=== PATIENT | male | born 1985 | race American Indian/Alaskan Native ===

== ENCOUNTER 2020-04-03 14:08 | Emergency (ER) | payer SELFPAY ==
[2020-04-03 14:48] VITALS: BP 135/73
--- NOTE | 2020-04-03 15:44 | Emergency Department Report ---
ED Abdominal Pain HPI - General Chief Complaint: Urogenital-Male Stated Complaint: GROIN PAINS Time Seen by Provider: 04/03/20 15:39 Source: patient Mode of arrival: Ambulatory Limitations: No Limitations - History of Present Illness Initial Comments: 35-year-old F [place] male with a relatively normal past medical history presents emergency department complaining of pain and swelling to his right inguinal area which started only after he tried to lift up a heavy box. States he lifted heavy box and felt immediate sharp burning pain to the right inguinal area with a knot that he been unable to get rid of since the onset of symptoms since then has been progressively worsening. Reports no diarrhea, no constipation, no fever, chills, sweats. Location: RLQ Radiation: none Migration to: no migration Severity: mild, moderate Quality: aching, sharp Consistency: constant Improves With: nothing Worsens With: nothing Associated Symptoms: denies: vomiting, diarrhea, constipation, hematuria, anorexia - Related Data Previous Rx's Medication Instructions Recorded Last Taken Type Ketorolac [Toradol] 10 mg PO Q6H PRN #14 tablet 04/03/20 Unknown Rx Allergies Allergy/AdvReac Type Severity Reaction Status Date / Time No Known Allergies Allergy Unverified 04/03/20 14:45 ED Review of Systems ROS: Stated complaint: GROIN PAINS Other details as noted in HPI Comment: All other systems reviewed and negative ED Past Medical Hx - Past Medical History Previous Medical History?: No - Surgical History Past Surgical History?: No - Social History Smoking Status: Current Every Day Smoker - Medications Home Medications: Home Medications Medication Instructions Recorded Confirmed Last Taken Type Ketorolac [Toradol] 10 mg PO Q6H PRN #14 tablet 04/03/20 Unknown Rx ED Physical Exam - General Limitations: No Limitations General appearance: alert, in no apparent distress - Head Head exam: Present: atraumatic, normocephalic - Eye Eye exam: Present: normal appearance, PERRL, EOMI Pupils: Present: normal accommodation - ENT ENT exam: Present: normal exam, mucous membranes moist, TM's normal bilaterally - Neck Neck exam: Present: normal inspection, full ROM. Absent: tenderness - Respiratory Respiratory exam: Present: normal lung sounds bilaterally. Absent: respiratory distress, rales, rhonchi, accessory muscle use, decreased breath sounds - Cardiovascular Cardiovascular Exam: Present: regular rate, normal rhythm. Absent: systolic murmur, diastolic murmur, rubs, gallop - GI/Abdominal GI/Abdominal exam: Present: soft, tenderness, normal bowel sounds, hernia (Right inguinal area tenderness with palpation unable to reduce in the area the lymph node ). Absent: hypoactive bowel sounds, organomegaly, mass, pulsatile mass - Rectal Rectal exam: Present: deferred - Extremities Exam Extremities exam: Present: normal inspection - Back Exam Back exam: Present: normal inspection - Neurological Exam Neurological exam: Present: alert, oriented X3 - Psychiatric Psychiatric exam: Present: normal affect, normal mood - Skin Skin exam: Present: warm, dry, intact, normal color. Absent: rash ED Course Vital Signs 04/03/20 14:44 Temperature 98.3 F Pulse Rate 74 Respiratory 16 Rate Blood Pressure 135/73 O2 Sat by Pulse 98 Oximetry ED Medical Decision Making - Lab Data Result diagrams: 04/03/20 16:09 04/03/20 16:09 - Radiology Data Radiology results: report reviewed Referring Physician:BEVERLY HUMPHREYSPatient Name:CAROL ANN SAGASTUMEPatient ID:[id number] of :[id number]:MaleAccession:[id number] Date:[id number] Status:Finalized Findings [facility] [address] [place] [address] Cat Scan Report Signed Patient: CAROL ANN SAGASTUME MR#: [id number] [birth year] : 1985 Acct:[id number] Age/Sex: 35 / M ADM Date: 04/03/20 Loc: ED Attending Dr: Ordering Physician: SLAVA GARCIA Date of Service: 04/03/20 Procedure(s): CT abdomen pelvis w con Accession Number(s): [id number] cc: SLAVA GARCIA CT ABDOMEN AND PELVIS WITH CONTRAST INDICATION / CLINICAL INFORMATION: Lower ABD Pain. TECHNIQUE: Axial CT images were obtained through the abdomen and pelvis after 100 cc Omni [address] scans at this location are performed using CT dose reduction for ALARA by means of automated exposure control. COMPARISON: None available. FINDINGS: LOWER CHEST: No significant abnormality. HEPATOBILIARY: Mildly enlarged liver. No focal hepatic lesion. No significant biliary abnormality. PANCREAS: No significant abnormality. SPLEEN: No significant abnormality. ADRENALS: No significant abnormality. GENITOURINARY: 1 mm right-sided nonobstructing nephrolith and 4 mm left-sided nonobstructing nephrolith. Visualized ureters and bladder demonstrate no significant abnormality. GASTROINTESTINAL/MESENTERY: No bowel obstruction or inflammation. Appendix d emonstrates no significant abnormality. No free air or significant free fluid. RETROPERITONEUM: No significant adenopathy. REPRODUCTIVE ORGANS: No significant abnormality. VASCULAR: No significant abnormality. Circumaortic left renal vein. SKELETAL SYSTEM: No significant abnormality. ADDITIONAL FINDINGS: None. IMPRESSION: 1. No acute abdominopelvic abnormality. 2. Mild hepatomegaly. 3. Few, punctate, nonobstructing nephroliths. Signer Name: Nahun Molina MD Signed: 04/03/2020 5:24 PM Workstation Name: [id number] Transcribed By: Dictated By: NAHUN MOLINA III Electronically Authenticated By: NAHUN MOLINA III Signed Date/Time: 04/03/201723 DD/ 16 TD/TT: - Medical Decision Making This patient presents with abdominal pain of unclear etiology. A CT scan was performed to evaluate for potential causes of the abdominal pain, however, neither the clinical exam nor the CT has identified an emergent etiology for the abdominal pain. Specifically, given the benign exam, the laboratory studies, and unremarkable CT, I have a very low suspicion for appendicitis, ischemic bowel, bowel perforation, or any other life threatening disease. I have discussed with the patient the level of uncertainty with undifferentiated abdominal pain and clearly explained the need to follow-up as noted on the discharge instructions, or return to the Emergency Department immediately if the pain worsens, develops fever, persistent and uncontrollable vomiting, or for any new symptoms or concerns. Critical care attestation.: If time is entered above; I have spent that time in minutes in the direct care of this critically ill patient, excluding procedure time. ED Disposition Clinical Impression: Abdominal pain, Inguinal hernia Disposition: -01 TO HOME OR SELFCARE Is pt being admited?: No Does the pt Need Aspirin: No Condition: Stable Instructions: Abdominal Pain (ED), Acute Abdominal Pain (ED), Inguinal Hernia (ED) Additional Instructions: Please be sure to follow-up with a general surgeon for definitive treatment Prescriptions: Ketorolac [Toradol] 10 mg PO Q6H PRN #14 tablet PRN Reason: Pain Referrals: PRIMARY CARE, [Primary Care Provider] - 3-5 Days [facility] [Provider Group] - 3-5 Days RAY HILLMAN DO [Staff Physician] - 3-5 Days
[2020-04-03 16:22] LABS: Basophils # (Auto) 0.1 K/mm3 (0.0-0.1); Basophils % (Auto) 0.8 % (0.0-1.8); Eosinophils # (Auto) 0.2 K/mm3 (0.0-0.4); Eosinophils % (Auto) 2.7 % (0.0-4.3); Hematocrit 40.6 % (35.5-45.6); Hemoglobin 13.5 gm/dl (11.8-15.2); Lymphocytes # (Auto) 1.7 K/mm3 (1.2-5.4); Lymphocytes % (Auto) 21.8 % (13.4-35.0); Mean Corpuscular HGB Conc 33 % (32-34); Mean Corpuscular Volume 86 fl (84-94); Monocytes # (Auto) 0.6 K/mm3 (0.0-0.8); Monocytes % (Auto) 7.8 % (0.0-7.3); Platelet Count 262 K/mm3 (140-440); Red Blood Count 4.75 M/mm3 (3.65-5.03); Red Cell Distribution Width 13.6 % (13.2-15.2)
[2020-04-03 16:36] LABS: Blood Urea Nitrogen 19 mg/dL (9-20); Calcium 9.2 mg/dL (8.4-10.2); Hemolysis Index 11
[2020-04-03] MEDS ORDERED: MORPHINE 2 MG/1 ML INJ ONE (16:44)
[2020-04-03 16:46] LABS: BUN/Creatinine Ratio 32
--- NOTE | 2020-04-03 17:29 | Cat Scan Report ---
CT ABDOMEN AND PELVIS WITH CONTRAST INDICATION / CLINICAL INFORMATION: Lower ABD Pain. TECHNIQUE: Axial CT images were obtained through the abdomen and pelvis after 100 cc Omni [address] scans at this location are performed using CT dose reduction for ALARA by means of automated expos ure control. COMPARISON: None available. FINDINGS: LOWER CHEST: No significant abnormality. HEPATOBILIARY: Mildly enlarged liver. No focal hepatic lesion. No significant biliary abnormality. PANCREAS: No significant abnormality. SPLEEN: No significant abnormality. ADRENALS: No significant abnormality. GENITOURINARY: 1 mm right-sided nonobstructing nephrolith and 4 mm left-sided nonobstructing nephroli th. Visualized ureters and bladder demonstrate no significant abnormality. GASTROINTESTINAL/MESENTERY: No bowel obstruction or inflammation. Appendix demonstrates no significan t abnormality. No free air or significant free fluid. RETROPERITONEUM: No significant adenopathy. REPRODUCTIVE ORGANS: No significant abnormality. VASCULAR: No significant abnormality. Circumaortic left renal vein. SKELETAL SYSTEM: No significant abnormality. ADDITIONAL FINDINGS: None. IMPRESSION: 1. No acute abdominopelvic abnormality. 2. Mild hepatomegaly. 3. Few, punctate, nonobstructing nephroliths. Signer Name: Cricket Molina MD Signed: 04/03/2020 5:24 PM Workstation Name: [id number]
[2020-04-03] MEDS ORDERED: KETOROLAC 30 MG/1 ML INJ IV STA (17:30)
[2020-04-03] MEDS ORDERED: ONDANSETRON 4 MG/2 ML INJ IV STA (17:30)
== END 2020-04-03 17:58 | disposition home or self-care (01) ==
LOC: ED 14:08
DX: K40.90 Unilateral inguinal hernia, without obstruction or gangrene, not specified as recurrent (principal); R10.31 Right lower quadrant pain; F17.200 Nicotine dependence, unspecified, uncomplicated; Z79.899 Other long term (current) drug therapy
CPT/HCPCS: 36415; 74177; 80048; 85025; 96374; 96375; 99284; J1885; J2405; Q9967; J2270